=== PATIENT | male | born 1975 | race Caucasian/White ===

== ENCOUNTER 2022-04-29 02:18 | Inpatient (IN) | payer MEDICAID, SELFPAY ==
[2022-04-29 02:21] VITALS: BMI 21.5
[2022-04-29 02:25] VITALS: BP 148/105; PULSE 68; RESP 16; TEMP 37.1; O2SAT 99
--- NOTE | 2022-04-29 02:41 | ED.C_ITS ---
HPI - Psych General: Chief Complaint: Psychiatric Symptoms Stated Complaint: SI/HI Time Seen by Provider: 04/29/22 02:21 Source: patient and EMS Mode of arrival: EMS Limitations: no limitations History of Present Illness: 47-year-old male was found sleeping by a vending machine at a [employer] by police when they awoke he states he is suicidal he tells me that he has been increasingly depressed he is supposed be on meds he is no longer taking them he states he just no longer wants to live has no specific plan but states that he needs to get help or he is going to harm himself. Associated symptoms: Reports depression and suicidal ideation Review of Systems Const: Denies: fever(s), chills, body aches or change in appetite Eyes: Denies: blurry vision or eye discomfort ENMT: Denies: throat pain or dental pain Card: Denies: chest pain Resp: Denies: dyspnea GI: Denies: abdominal pain, nausea, vomiting or diarrhea : Denies: dysuria Musc: Denies: neck pain or back pain Skin/Breast: Denies: rash Neuro: Denies: headache(s) Psych: Reports: depression and suicidal ideation Misha/Lymph: Denies: easy bruising All/Imm: Denies: urticaria PFSH ED PFSH: Medical History (Updated 04/29/22 @ 03:18 by Tunde Becerra MD) Depression Social History (Updated 04/29/22 @ 02:42 by Tunde Becerra MD) Substance/Drug Use: current Physical Exam Const: COMMON NORMALS: no acute distress, patient oriented x3 and healthy appearing HENMT: COMMON NORMALS: normocephalic and atraumatic HEAD & SCALP: normocephalic and atraumatic Eye: COMMON NORMALS: Equal, round and reactive pupils present and EOMs intact bilaterally PUPIL: Yes Equal, round and reactive pupils present Neck/C-Spine: COMMON NORMALS: full ROM and supple Chest: COMMONS NORMALS: normal inspection of the chest and normal palpation of entire chest wall Resp: COMMON NORMALS: normal respiratory effort, No retractions, No use of accessory muscles and clear to auscultation bilaterally AUSCULTATION: clear to auscultation bilaterally Cardio: COMMON NORMALS: regular rate, regular rhythm and No murmurs present (Cardio) RATE: regular rate RHYTHM: regular rhythm GI: COMMON NORMALS: Normal to inspection, nondistended, normoactive bowel sounds present, Soft to palpation, non-tender and no masses PALPATION: Yes Soft to palpation Extremity: COMMON NORMALS: normal to inspection and full ROM Neuro: COMMON NORMALS: patient oriented x3, moves all extremities and no focal motor deficits Psych: COMMON NORMALS: mental status grossly normal, Normal thought process present and cooperative MOOD & AFFECT: Yes depressed mood THOUGHT PROCESS: Normal thought process present THOUGHT CONTENT: Yes Suicidality present Skin: COMMON NORMALS: no rashes or lesions noted and no wounds GENERAL SKIN EXAM: no rashes or lesions noted Course Vital Signs: Vital signs: Vital Signs Temperature 98.8 F 04/29/22 02:25 Pulse Rate 68 04/29/22 02:25 Respiratory Rate 16 04/29/22 02:25 Blood Pressure 148/105 04/29/22 02:25 Pulse Oximetry 99 04/29/22 02:25 Oxygen Delivery Me thod 04/29/22 02:25 MDM - Psych Medical Decision Making Patient presents here with suicidal ideation he was placed on a 96-hour hold spoke to psychiatrist Dr. De La Rosa and will admit at this time. Lab Data 04/29/22 03:02 04/29/22 03:02 Laboratory Results WBC 6.5 10^3/uL (4.0-10.0) 04/29/22 03:02 RBC 5.21 10^6/uL (4.1-5.3) 04/29/22 03:02 Hgb 15.2 g/dL (11.7-16.6) 04/29/22 03:02 Hct 44.7 % (42.0-52.0) 04/29/22 03:02 MCV 85.8 fl (80-94) 04/29/22 03:02 MCH 29.2 pg (28.0-34.0) 04/29/22 03:02 MCHC 34.0 g/dL (30.0-36.0) 04/29/22 03:02 RDW 12.9 % (12.1-15.1) 04/29/22 03:02 Plt Count 283 10^3/cmm (130-400) 04/29/22 03:02 MPV 8.5 fL (7.4-10.4) 04/29/22 03:02 Neut % (Auto) 51.1 % 04/29/22 03:02 Lymph % (Auto) 38.2 % 04/29/22 03:02 [place] % (Auto) 8.0 % 04/29/22 03:02 Eos % (Auto) 1.7 % 04/29/22 03:02 Baso % (Auto) 0.8 % 04/29/22 03:02 Neut # (Auto) 3.33 10^3/uL (1.8-7.7) 04/29/22 03:02 Lymph # (Auto) 2.5 10^3/uL (0.8-4.8) 04/29/22 03:02 [place] # (Auto) 0.5 10^3/uL (0.2-0.9) 04/29/22 03:02 Eos # (Auto) 0.1 10^3/uL (0.0-0.8) 04/29/22 03:02 Baso # (Auto) 0.1 10^3/uL (0.0-0.1) 04/29/22 03:02 Nucleated RBC % (auto) 0 % 04/29/22 03:02 Nucleated RBCs # 0.0 /100WBC 04/29/22 03:02 Discharge Plan Discharge Patient Disposition: Admitted As Inpatient Clinical Impression: Suicidal ideation Coding Level of Care Code ED [employer]
[2022-04-29 03:12] LABS: Basophils # 0.1 10^3/uL (0.0-0.1); Basophils % 0.8 %; Eosinophils # 0.1 10^3/uL (0.0-0.8); Eosinophils % 1.7 %; Hematocrit 44.7 % (42.0-52.0); Hemoglobin 15.2 g/dL (11.7-16.6); Lymphocytes # 2.5 10^3/uL (0.8-4.8); Lymphocytes % 38.2 %; Mean Corpuscular Hemoglobin 29.2 pg (28.0-34.0); Mean Corpuscular Volume 85.8 fl (80-94); Mean Platelet Volume 8.5 fL (7.4-10.4); Monocytes # 0.5 10^3/uL (0.2-0.9); Neutrophils # 3.33 10^3/uL (1.8-7.7); Neutrophils % 51.1 %; Nucleated Red Blood Cells % 0 %; Platelet Count 283 10^3/cmm (130-400); Red Blood Count 5.21 10^6/uL (4.1-5.3); Red Cell Distribution Width 12.9 % (12.1-15.1); White Blood Count 6.5 10^3/uL (4.0-10.0)
[2022-04-29] MEDS: LORazepam 2 mg Tablet PO (03:25)
--- NOTE | 2022-04-29 03:25 | PC.NURSE ---
Pt served with copy of 96 hour hold right @ 7527 by this nurse and security.
[2022-04-29 03:35] LABS: Alanine Aminotransferase 26 U/L (0-41); Albumin Level 4.7 g/dL (3.5-5.2); Alkaline Phosphatase 63 U/L (40-130); Anion Gap 13.5 (5-19); Aspartate Amino Transferase 22 U/L (0-40); Blood Urea Nitrogen 16 mg/dL (6-20); Calcium 9.6 mg/dL (8.5-10.5); Carbon Dioxide 27 mmol/L (22-29); Chloride 96 mmol/L (98-107); Creatinine Clr Calc Pharmacy 133.8588; Globulin 3.7 g/dL (1.3-4.6); Glucose 91 mg/dL (65-115); Osmolality Calculated 277 mOsm/kg (285-295); Potassium 3.5 mmol/L (3.5-5.1); Sodium 133 mmol/L (136-145); Total Bilirubin 0.9 mg/dL (0.15-1.2); Total Protein 8.4 g/dL (6.6-8.7)
[2022-04-29 03:46] LABS: Acetaminophen < 5.0 ug/mL (10-30); Alcohol Level < 10 mg/dL (0-10); Salicylate < 0.3 mg/dL (3-10)
[2022-04-29 04:53] VITALS: BP 158/76; PULSE 99; RESP 18; TEMP 36.6; O2SAT 100
[2022-04-29 04:54] VITALS: BP 139/90; PULSE 100; RESP 16; O2SAT 98
[2022-04-29 05:16] LABS: Amphetamines Screen Urine Positive (Negative); Barbiturates Screen Urine Negative (Negative); Benzodiazepines Screen Urine Positive (Negative); Cocaine Screen Urine Negative (Negative); Opiate Screen Urine Negative (Negative); PCP Screen Urine Negative (Negative); THC Screen Urine Positive (Negative)
--- NOTE | 2022-04-29 05:30 | PC.NURSE ---
0330- pt read rights and notified of his 96 hr hold by Trisha GUYhistoric sites supervisor, Bala guajardo
[2022-04-29] MEDS: OLANZapine 5 mg ODT PO ×3 (05:32→14:14)
[2022-04-29] MEDS: hyDROXYzine 25 mg Capsule 50 MG PO ×2 (05:32→14:14)
[2022-04-29] MEDS: trazodone 50 mg Tablet PO (05:33)
[2022-04-29 06:00] VITALS: BP 158/76; PULSE 99; RESP 18; TEMP 36.6; O2SAT 100
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
[2022-04-29] MEDS: famotidine 20 mg Tablet 40 MG PO ×2 (08:54→20:01)
[2022-04-29] MEDS: acetaminophen 325 mg Tablet 650 MG PO (09:47)
[2022-04-29] MEDS: sucralfate 1 gm Tablet PO ×2 (12:52→17:53)
[2022-04-29 14:00] VITALS: RESP 16
[2022-04-29] MEDS: ALPRAZolam 0.5 mg Tablet 1 MG PO (18:36)
[2022-04-29] MEDS: gabapentin 400 mg Capsule 800 MG PO (20:02)
[2022-04-29] MEDS: quetiapine 100 mg Tablet 200 MG PO (20:02)
[2022-04-29 22:00] VITALS: BP 117/70; PULSE 65; RESP 16; TEMP 36.8; O2SAT 95
[2022-04-30 06:00] VITALS: BP 115/76; PULSE 72; RESP 16; O2SAT 98
[2022-04-30] MEDS: sucralfate 1 gm Tablet PO ×4 (08:19→21:44)
[2022-04-30] MEDS: gabapentin 400 mg Capsule 800 MG PO ×3 (08:19→21:20)
[2022-04-30] MEDS: sertraline 50 mg Tablet PO (08:20)
[2022-04-30] MEDS: ALPRAZolam 0.5 mg Tablet 1 MG PO ×3 (08:20→21:21)
[2022-04-30] MEDS: famotidine 20 mg Tablet 40 MG PO ×2 (08:20→21:24)
[2022-04-30] MEDS: acetaminophen 325 mg Tablet 650 MG PO (10:54)
[2022-04-30 14:00] VITALS: BP 120/71; PULSE 70; RESP 18; TEMP 36.6; O2SAT 98
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
[2022-04-30] MEDS: ibuprofen 600 mg Tablet PO ×2 (17:27→21:40)
[2022-04-30] MEDS: quetiapine 100 mg Tablet 200 MG PO (21:19)
[2022-04-30] MEDS: trazodone 50 mg Tablet PO (21:20)
[2022-04-30 22:00] VITALS: BP 133/88; PULSE 80; RESP 16; TEMP 36.4; O2SAT 100
[2022-05-01 06:00] VITALS: BP 119/81; PULSE 84; RESP 16; TEMP 36.4; O2SAT 99
[2022-05-01] MEDS: sucralfate 1 gm Tablet PO ×4 (06:52→21:07)
[2022-05-01] MEDS: ibuprofen 600 mg Tablet PO (06:53)
[2022-05-01] MEDS: hyDROXYzine 25 mg Capsule 50 MG PO ×2 (06:53→15:38)
[2022-05-01] MEDS: famotidine 20 mg Tablet 40 MG PO ×2 (09:07→21:06)
[2022-05-01] MEDS: ALPRAZolam 0.5 mg Tablet 1 MG PO ×3 (09:08→20:56)
[2022-05-01] MEDS: sertraline 50 mg Tablet PO (09:08)
[2022-05-01] MEDS: gabapentin 400 mg Capsule 800 MG PO ×3 (09:08→20:56)
[2022-05-01] MEDS: OLANZapine 5 mg ODT PO ×2 (10:24→18:09)
[2022-05-01 14:00] VITALS: BP 135/74; PULSE 98; RESP 18; TEMP 36.9; O2SAT 97
--- NOTE | 2022-05-01 14:03 | W.PM.NPUPNS ---
Subjective NPU Subjective: Patient presented today reporting that things are going rough. We had a fairly contentious conversation about his medications. He was upset that his Xanax was not still being prescribed at 2 mg p.o. 3 times daily. We had a very lengthy discussion about why we would change that. He argued that it is working perfectly and I question that given that he is in the hospital. He reports a plan to return to the previous prescriber and go right back to that dose which we discussed was his prerogative. However we discussed the fact that pain medication prescription will have to take that into consideration. Additionally we discussed that long-term 6 mg of Xanax a day is not sustainable. We discussed his pain he reports and agreed we would initiate a hospitalist consult and await their recommendations from a standpoint of managing that aspect of his hospitalization. He continued to report stress related to inheriting a bunch of money often talking about values of things in possible millions and Gold bars and silver bars etc. Mental Status Exam MSE Comments: This is a slender white male in hospital scrubs with adequate grooming and limited eye contact. No abnormal movements except for mild psychomotor agitation. Mostly cooperative with exam and mild distress. Speech was slightly increased rate and normal volume. Mood described as okay but in pain, affect hypomanic. Thought process disorganized at times. Thought content: Patient denied suicidal or homicidal ideation, there were no delusions reported but some possible odd, paranoid, persecutory delusions noted, he denied any auditory or visual hallucinations. Attention and concentration were limited and memory appeared unreliable but none were formally tested. He is alert and oriented x3. Insight and judgment appear limited impulse control is impaired. Vitals/I&O/Wt Last Vital Signs Temp 97.5 F L 05/01/22 06:00 Pulse 84 05/01/22 06:00 Resp 16 05/01/22 06:00 BP 119/81 05/01/22 06:00 Pulse Ox 99 05/01/22 06:00 O2 Del Method 05/01/22 06:00 Data NPU 04/29/22 03:02 04/29/22 03:02 A&P Assessment and plan (1) Suicidal ideation: (2) Major depressive disorder, recurrent severe without psychotic features: (3) PTSD (post-traumatic stress disorder): (4) ADHD: Plan The patient is a 47 year old white male with PTSD, MDD, panic attacks admitted with worsening depression and suicidal ideation. He will require continued inpatient hospitalization. #1. We will attempt to gather collateral information including medications. #2. Engage patient in individual milieu and group therapy. #3. Continue 15-minute checks for safety on the unit. #4. We will restart Xanax, Zoloft, gabapentin, and Seroquel as prescribed. #5. Obtain hospitalist consult to evaluate pain and possible need for pain medication in the context of reports of multiple hernias. Involuntary Hold Information 96 Hour Hold: 96 Hour Involuntary Admission: Yes 96 Hour Hold Ending Date: 05/05/22 96 Hour Hold Ending Time: 02:18 Attestations NPU Medical Necessity Statement*: Inpatient hospitalization is medically necessary and the clinically appropriate intervention at this time. We will continue/initiate medications and make changes as indicated. Likely length of stay of 3-6 days. Coding Level of Care Code Acute Code for [facility] Fwd Diagnoses Suicidal ideation R45.851 Major depressive disorder, recurrent severe without psychotic features F33.2 PTSD (post-traumatic stress disorder) F43.10 ADHD F90.9
--- NOTE | 2022-05-01 15:55 | PM.CONSULT ---
Providers/Reason For Consult Consulting Physician/Specialty*: Family Medicine. Reason for Consult*: Abdominal hernia x 3. Attending Physician: Srinivasa De La Rosa MD History of Present Illness History of Present Illness Abisai Humphrey is a 47 year old male currently admitted to [facility] for Depression with SI, PTSD. Dr. De La Rosa requested consult for evaluation of abdominal hernias. Patient had been reporting pain when he gets up and moves around. He was previously evaluated it [facility] and it was recommended that he establish with a PCP and set up with surgery to have these repaired. He voices to me today that due to several life circumstances, he was unable to make this happen. He denies any pain at rest. Has had normal bowel movements and passes flatus regularly without difficulty. Denies blood in his stool. He does endorse a current history of Hepatitis C. Review of Systems General: Reports: 10 or more systems reviewed and unremarkable except in HPI and below Medications/Allergies Home Medications Medication Instructions Recorded Confirmed Last Taken Type albuterol sulfate 90 mcg/actuation 2 inh inhalation BID PRN Shortness 04/29/22 04/29/22 Unknown History aerosol inhaler (ProAir HFA) Of Breath Or Wheezing famotidine 40 mg tablet (Pepcid) 40 mg PO 1XD 04/29/22 04/29/22 Unknown History naloxone 4 mg/actuation nasal 4 mg intranasal DIRECTED PRN 04/29/22 04/29/22 Unknown History spray (Narcan) (Drug) Ingestion sucralfate 1 gram tablet (Carafate) 1 g PO DIRECTED 04/30/22 04/30/22 Unknown History Allergies Allergy/AdvReac Type Severity Reaction Status Date / Time haloperidol [From Haldol] Allergy ADR-Cramping Verified 04/29/22 03:31 of the Muscles Current Medications Generic Name Dose Route Start Last Admin Trade Name Freq PRN Reason Stop Dose Admin Acetaminophen 650 mg 04/29/22 04:53 04/30/22 10:54 Acetaminophen 325 Mg Tablet PO 650 mg Q4H PRN Administration MILD PAIN Alprazolam 1 mg 04/30/22 09:00 05/01/22 15:44 Alprazolam 0.5 Mg Tablet PO 1 mg TID ERVIN Administration Famotidine 40 mg 04/29/22 09:00 05/01/22 09:07 Famotidine 20 Mg Tablet PO 40 mg BID@0900,2100 ERVIN Administration Gabapentin 800 mg 04/29/22 21:00 05/01/22 15:44 Gabapentin 400 Mg Capsule PO 800 mg TID ERVIN Administration Hydroxyzine Pamoate 50 mg 04/29/22 04:53 05/01/22 15:38 Hydroxyzine 25 Mg Capsule PO 50 mg Q6H PRN Administration ANXIETY Ibuprofen 600 mg 04/30/22 15:53 05/01/22 06:53 Ibuprofen 600 Mg Tablet PO 600 mg Q6H PRN Administration MODERATE PAIN Olanzapine 5 mg 04/29/22 04:53 05/01/22 10:24 Olanzapine 5 Mg Odt PO 5 mg Q4H PRN Administration Agitation/Psychosis Quetiapine Fumarate 200 mg 04/29/22 21:00 04/30/22 21:19 Quetiapine 100 Mg Tablet PO 200 mg BEDTIME ERVIN Administration Sertraline HCl 50 mg 04/30/22 09:00 05/01/22 09:08 Sertraline 50 Mg Tablet PO 50 mg DAILY ERVIN Administration Sucralfate 1 gm 04/30/22 07:30 05/01/22 12:41 Sucralfate 1 Gm Tablet PO 1 gm AC&BEDTIME ERVIN Administration PFSH Acute PFSH: Medical History (Updated 05/01/22 @ 16:00 by Andrew Berumen DO) Depression Social History (Updated 04/29/22 @ 02:42 by Tunde Becerra MD) Substance/Drug Use: current Vitals/I&O/Wt Last Vital Signs Temp 98.5 F 05/01/22 14:00 Pulse 98 05/01/22 14:00 Resp 18 05/01/22 14:00 BP 135/74 05/01/22 14:00 Pulse Ox 97 05/01/22 14:00 O2 Del Method 05/01/22 14:00 Physical Exam Narrative: General: Cooperative patient in no apparent distress. Well developed. HEENT: Normocephalic, Atraumatic. External ears normal. Nasal passages patent without drainage. MMM. Heart: RRR. Resp: LCTA. No respiratory distress, no use of accessory muscles. Abd: Soft, non-tender. Non-distended. Reducible abdominal hernia upper abdomen, bilateral inguinal hernias, R>L side. No signs or concerns of incarceration or strangulation. Bowel sounds normal. Extremities: No edema. Skin: No rash or lesions on exposed areas. Data 04/29/22 03:02 04/29/22 03:02 A&P Assessment and plan (1) Abdominal hernia: (2) Bilateral inguinal hernia: Plan Abisai Humphrey is a 47 year old male seen today for evaluation of his Abdominal hernias. They appear stable and easily reducible at this time. He says that he did have them evaluated at other facilities previously and was encouraged to establish with a general surgeon to have these repaired. He regards pain as his biggest problem at this time. He does have a questionable history of substance abuse, and recent UDS was positive for THC, Amphetamines, Benzos. Will hold on opiate medications at this time given this and the potential for slowing colonic transit/constipation which could worsen his hernias. Can try Diclofenac to see if this will help with is pain. I recomended that he alternate Tylenol and NSAIDs in attempt to keep his pain better controlled. No indication for imaging at this time. May be handled on outpatient basis, but would recommend that he have this done relatively quickly as to avoid progression or worsening. Will follow with patient as needed. Consult Attestations Medical Necessity Statement: Consult completed for evaluation of abdominal hernia and pain control. Coding Level of Care Code Acute Code for Chg Fwd Straight Forward MDM includes number and complexity of problems actively addressed during encounter, amount and/or complexity of data reviewed/ordered and described risk of complication, morbidity or mortality of management as documented Diagnoses Abdominal hernia K46.9 Bilateral inguinal hernia K40.20
--- NOTE | 2022-05-01 18:10 | PC.NURSE ---
PRN [facility] Nurse Supervisor Patient states he is feeling overwhelmed by trying to think of what he is going to do when he leaves here. This RN assured him our interdisciplinary team would help him decide where to go and what to do. This RN also suggested he make a list of ideas of things he might want to do before he leaves here and what he is going to do after. Patient stated he didn't want to try the coping mechanism right now. Zyprexa 10mg odt administered.
[2022-05-01 20:07] VITALS: BP 145/84; PULSE 97; RESP 21; TEMP 36.7; O2SAT 98
[2022-05-01] MEDS: quetiapine 100 mg Tablet 200 MG PO (20:57)
[2022-05-01] MEDS: acetaminophen 325 mg Tablet 650 MG PO (20:57)
[2022-05-02 06:00] VITALS: RESP 17
[2022-05-02] MEDS: sucralfate 1 gm Tablet PO ×4 (07:08→22:26)
[2022-05-02] MEDS: gabapentin 400 mg Capsule 800 MG PO ×3 (08:06→21:12)
[2022-05-02] MEDS: sertraline 50 mg Tablet PO (08:06)
[2022-05-02] MEDS: ALPRAZolam 0.5 mg Tablet 1 MG PO ×3 (08:06→21:11)
[2022-05-02] MEDS: famotidine 20 mg Tablet 40 MG PO ×2 (08:07→22:26)
[2022-05-02] MEDS: hyDROXYzine 25 mg Capsule 50 MG PO (11:12)
[2022-05-02] MEDS: OLANZapine 5 mg ODT PO ×3 (11:39→18:21)
[2022-05-02] MEDS: benzocaine 20% 7 gm 1 APPLIC MUCOUS MEM (11:40)
[2022-05-02] MEDS: acetaminophen 325 mg Tablet 650 MG PO ×2 (11:56→15:22)
--- NOTE | 2022-05-02 13:29 | W.PM.NPUPNS ---
Subjective NPU Subjective: Patient presented today reporting that he now has [id number] to pain and need medication for that. It is notable that his vvi-[id number] pain from his hernia is which led to him having exaggerated gait is no longer notable. He had very angry about lack of willingness to have sympathy and give him pain medications every 6 hours. The increase in his ibuprofen was not acceptable approach as far he was concerned. He started focusing on his hold is over and making threats about acting out to get an injection. Mental Status Exam MSE Comments: This is a slender white male in hospital scrubs with adequate grooming and limited eye contact. No abnormal movements except for mild psychomotor agitation. Mostly uncooperative with exam and mild to moderate distress. Speech was slightly increased rate and normal volume. Mood described as upset/angry and in pain, affect hypomanic. Thought process more organized. Thought content: Patient denied suicidal or homicidal ideation, there were no delusions reported but some possible odd, paranoid, persecutory delusions noted, he denied any auditory or visual hallucinations. Attention and concentration were limited and memory appeared unreliable but none were formally tested. He is alert and oriented x3. Insight and judgment appear limited impulse control is impaired. Vitals/I&O/Wt Last Vital Signs Temp 98.0 F 05/01/22 20:07 Pulse 97 05/01/22 20:07 Resp 17 05/02/22 06:00 BP 145/84 05/01/22 20:07 Pulse Ox 98 05/01/22 20:07 O2 Del Method 05/01/22 20:07 Data NPU 04/29/22 03:02 04/29/22 03:02 A&P Assessment and plan (1) Abdominal hernia: (2) Bilateral inguinal hernia: (3) Suicidal ideation: (4) Major depressive disorder, recurrent severe without psychotic features: (5) PTSD (post-traumatic stress disorder): (6) ADHD: Plan The patient is a 47 year old white male with PTSD, MDD, panic attacks admitted with worsening depression and suicidal ideation. He will require continued inpatient hospitalization. #1. We will attempt to gather collateral information including medications. #2. Engage patient in individual milieu and group therapy. #3. Continue 15-minute checks for safety on the unit. #4. We will restart Xanax, Zoloft, gabapentin, and Seroquel as prescribed. #5. Obtain hospitalist consult to evaluate pain and possible need for pain medication in the context of reports of multiple hernias. Involuntary Hold Information 96 Hour Hold: 96 Hour Involuntary Admission: Yes 96 Hour Hold Ending Date: 05/05/22 96 Hour Hold Ending Time: 02:18 Attestations NPU Medical Necessity Statement*: Inpatient hospitalization is medically necessary and the clinically appropriate intervention at this time. We will continue/initiate medications and make changes as indicated. Likely length of stay of 2-5 days. Coding Level of Care Code Acute Code for Chg Fwd Diagnoses Abdominal hernia K46.9 Bilateral inguinal hernia K40.20 Suicidal ideation R45.851 Major depressive disorder, recurrent severe without psychotic features F33.2 PTSD (post-traumatic stress disorder) F43.10 ADHD F90.9
[2022-05-02 14:00] VITALS: BP 148/109; PULSE 118; RESP 18; TEMP 37; O2SAT 97
[2022-05-02] MEDS: diclofenac 75 mg DR Tablet PO (17:11)
[2022-05-02] MEDS: loperamide 2 mg Capsule PO (18:18)
[2022-05-02] MEDS: ondansetron 4 MG Tablet PO (18:18)
[2022-05-02] MEDS: ibuprofen 800 mg tablet PO (19:17)
--- NOTE | 2022-05-02 19:20 | PC.NURSE ---
Pt stated that he feels the [facility] is ignorant and unsympathetic to him.
[2022-05-02 20:04] VITALS: BP 162/91; PULSE 102; RESP 18; TEMP 37.3; O2SAT 100
[2022-05-02] MEDS: quetiapine 100 mg Tablet 200 MG PO (21:11)
[2022-05-03] MEDS: hyDROXYzine 25 mg Capsule 50 MG PO (03:29)
[2022-05-03] MEDS: ibuprofen 800 mg tablet PO ×3 (03:29→22:53)
[2022-05-03 06:00] VITALS: BP 134/75; PULSE 92; RESP 18; O2SAT 98
[2022-05-03] MEDS: acetaminophen 325 mg Tablet 650 MG PO (08:40)
[2022-05-03] MEDS: ALPRAZolam 0.5 mg Tablet 1 MG PO ×3 (08:40→21:11)
[2022-05-03] MEDS: gabapentin 400 mg Capsule 800 MG PO ×3 (08:40→19:55)
[2022-05-03] MEDS: sucralfate 1 gm Tablet PO ×4 (08:41→19:55)
[2022-05-03] MEDS: sertraline 50 mg Tablet PO (08:41)
[2022-05-03] MEDS: famotidine 20 mg Tablet 40 MG PO ×2 (08:41→19:56)
--- NOTE | 2022-05-03 12:18 | W.PM.NPUPNS ---
Subjective NPU Subjective: Patient presented today reporting that he is still having some pain in his tooth. We discussed the possibility of antibiotic but it is unclear whether there is an infection though he does report feeling swelling in his face is not excessively so. We discussed his holding up soon and the possibility of discharge tomorrow. He lobbied for his Xanax to be increased. He also lobbied for pain medication. We discussed a plan to call his outpatient provider to discuss the plan for Xanax moving forward for discharge dosage. He reported worries about his inheritance being stolen from him and also discussed a $1.5 million settlement with 1 entity and $2.5 million settlement and works regarding some other entity. Mental Status Exam MSE Comments: This is a slender white male in hospital scrubs with adequate grooming and limited eye contact. No abnormal movements except for mild psychomotor agitation. More cooperative with exam and mild distress. Speech was slightly increased rate and normal volume. Mood described as more calm but still in pain, affect congruent. Thought process more organized. Thought content: Patient denied suicidal or homicidal ideation, there were no delusions reported but some possible odd, paranoid, persecutory delusions noted, he denied any auditory or visual hallucinations. Attention and concentration were limited and memory appeared unreliable but none were formally tested. He is alert and oriented x3. Insight and judgment appear limited impulse control is impaired. Vitals/I&O/Wt Last Vital Signs Temp 99.1 F 05/02/22 20:04 Pulse 92 05/03/22 06:00 Resp 18 05/03/22 06:00 BP 134/75 05/03/22 06:00 Pulse Ox 98 05/03/22 06:00 O2 Del Method 05/01/22 20:07 Weight last 48 hrs Weight 69.037 kg Data NPU 04/29/22 03:02 04/29/22 03:02 A&P Assessment and plan (1) Abdominal hernia: (2) Bilateral inguinal hernia: (3) Suicidal ideation: (4) Major depressive disorder, recurrent severe without psychotic features: (5) PTSD (post-traumatic stress disorder): (6) ADHD: Plan The patient is a 47 year old white male with PTSD, MDD, panic attacks admitted with worsening depression and suicidal ideation. He will require continued inpatient hospitalization. #1. We will attempt to gather collateral information including medications. #2. Engage patient in individual milieu and group therapy. #3. Continue 15-minute checks for safety on the unit. #4. We will restart Xanax, Zoloft, gabapentin, and Seroquel as prescribed. #5. Obtain hospitalist consult to evaluate pain and possible need for pain medication in the context of reports of multiple hernias. Involuntary Hold Information 96 Hour Hold: 96 Hour Involuntary Admission: Yes 96 Hour Hold Ending Date: 05/05/22 96 Hour Hold Ending Time: 02:18 Attestations NPU Medical Necessity Statement*: Inpatient hospitalization is medically necessary and the clinically appropriate intervention at this time. We will continue/initiate medications and make changes as indicated. Likely length of stay of 1-4 days. Coding Level of Care Code Acute Code for g Fwd Diagnoses Abdominal hernia K46.9 Bilateral inguinal hernia K40.20 Suicidal ideation R45.851 Major depressive disorder, recurrent severe without psychotic features F33.2 PTSD (post-traumatic stress disorder) F43.10 ADHD F90.9
[2022-05-03 14:00] VITALS: BP 134/85; PULSE 98; RESP 18; TEMP 36.4; O2SAT 97
[2022-05-03] MEDS: nicotine 21 mg Patch 1 PATCH TRANSDERMA (14:32)
[2022-05-03] MEDS: OLANZapine 5 mg ODT PO ×2 (16:29→19:56)
[2022-05-03] MEDS: blistex lip oint 7 gm Tube 1 APPLIC TOPICAL (16:29)
--- NOTE | 2022-05-03 16:35 | PC.NURSE ---
PT REQUESTING SOME MEDS FOR THE VOICES PT IS ALLERGIC TO HALDOL SO THIS NURSE ADMIN ZBARONIS AND PT SAID THAT MED DOES HELP, PT REPORTS VOICES ARE TELLING HIM WE ARE TRYING TO TAKE OVER HIS MIND AND CRUDE THINGS ABOUT THIS NURSE. PT HAS NO S/S OF RESPONDING TO INTERNAL STIMULI
[2022-05-03] MEDS: loperamide 2 mg Capsule PO (18:04)
[2022-05-03] MEDS: quetiapine 100 mg Tablet 200 MG PO (19:54)
[2022-05-03 20:07] VITALS: BP 150/82; PULSE 120; RESP 22; TEMP 36.8; O2SAT 95
[2022-05-04] MEDS: acetaminophen 325 mg Tablet 650 MG PO (04:16)
[2022-05-04] MEDS: hyDROXYzine 25 mg Capsule 50 MG PO ×3 (04:16→20:10)
--- NOTE | 2022-05-04 05:39 | PC.NURSE ---
Patient has been med seeking this shift. At beginning of shift patient came to window and stated he needed a shot for his agitation and AH. Stated the voices were loud and he wanted an Ativan shot. Explained to patient that an IM was a last resort medication and offered patient po zyprexa. Patient stated it would not work. Reinforced how and when medication is administered. Spoke with patient in great length and told him he would not be getting an IM at this time and offered po zyprexa. Patient started rubbing his face and head and stated I see other people getting shots, why can't I? Explained again the procedure on administration of medications for anxiety, psychosis and agitation. Patient then agreed to take zyprexa po and Ibuprofen for a toothache at 1957. Patient returned to room and slept til 0415. Patient came to window and asked for something for his nerves. Patient requested IM ativan again. Reviewed what we had talked about earlier in shift. Told patient I could offer him vistaril for his anxiety. Patient stated That doesn't work for me. Patient then complained of a toothache and tylenol was offered at that time. Patient agreed to take vistaril and tylenol at that time. Given as ordered. Patient then asked for snacks which included ice-cream. Suggested different snack than ice-cream due to his c/o toothache. Patient stated he wanted the ice-cream and would be fine. Patient has been asleep with no further signs of pain or anxiety noted at this time.
[2022-05-04 06:00] VITALS: BP 128/83; PULSE 103; RESP 18; O2SAT 98
[2022-05-04] MEDS: sucralfate 1 gm Tablet PO ×4 (06:25→20:10)
[2022-05-04] MEDS: ibuprofen 800 mg tablet PO ×2 (08:01→21:43)
[2022-05-04] MEDS: sertraline 50 mg Tablet PO (08:02)
[2022-05-04] MEDS: gabapentin 400 mg Capsule 800 MG PO ×3 (08:02→20:10)
[2022-05-04] MEDS: ALPRAZolam 0.5 mg Tablet 1 MG PO ×3 (08:02→20:10)
[2022-05-04] MEDS: famotidine 20 mg Tablet 40 MG PO ×2 (08:02→20:10)
[2022-05-04] MEDS: nicotine 21 mg Patch 1 PATCH TRANSDERMA (08:46)
[2022-05-04] MEDS: OLANZapine 5 mg ODT PO ×2 (10:09→21:43)
[2022-05-04 14:00] VITALS: BP 153/95; PULSE 102; RESP 18; TEMP 36.8; O2SAT 98
[2022-05-04] MEDS: ondansetron 4 MG Tablet PO (14:11)
--- NOTE | 2022-05-04 14:12 | PC.NURSE ---
PT CAME TO NURSES STATION COMPLAINING OF ANXIETY AND FEELING NAUSEATED. PT WAS GIVEN SCHEDULED XANAX AND ZOFRAN.
[2022-05-04] MEDS: calcium carbonate 500 mg Chew Tablet PO (15:02)
[2022-05-04] MEDS: benzocaine 20% 7 gm 1 APPLIC MUCOUS MEM ×2 (15:10→21:43)
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
[2022-05-04] MEDS: quetiapine 100 mg Tablet 200 MG PO (20:10)
[2022-05-04 20:15] VITALS: BP 163/97; PULSE 101; RESP 18; TEMP 36.7; O2SAT 96
[2022-05-05 04:54] VITALS: BP 137/95; PULSE 104; RESP 18; TEMP 36.4; O2SAT 97
--- NOTE | 2022-05-05 06:32 | PC.NURSE ---
Patient came to nurse's station and stated he needed something for my nerves to calm me down. Patient stated he felt like he was going to lose his temper. PRN ativan po given. This content writer walked patient to room. Patient stated while talking with this content writer that he felt like he was going to go off today. When asked why he felt this way he responded Im just angry. Talked with patient for several minutes in an attempt to calm him down. Suggested patient lay down and try to relax so the medicine could work. Patient agreed and asked for an extra blanket. Patient currently in bed.
[2022-05-05] MEDS: sucralfate 1 gm Tablet PO ×3 (06:42→16:56)
[2022-05-05] MEDS: hyDROXYzine 25 mg Capsule 50 MG PO ×2 (07:35→12:10)
[2022-05-05] MEDS: ibuprofen 800 mg tablet PO (07:47)
[2022-05-05] MEDS: ALPRAZolam 0.5 mg Tablet 1 MG PO (08:52)
[2022-05-05] MEDS: sertraline 50 mg Tablet PO (08:53)
[2022-05-05] MEDS: famotidine 20 mg Tablet 40 MG PO (08:53)
[2022-05-05] MEDS: gabapentin 400 mg Capsule 800 MG PO ×2 (08:53→14:52)
[2022-05-05] MEDS: nicotine 21 mg Patch 1 PATCH TRANSDERMA (09:23)
[2022-05-05] MEDS: OLANZapine 5 mg ODT PO (10:19)
[2022-05-05 10:22] VITALS: BP 138/94; PULSE 108
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
[2022-05-05 14:31] VITALS: BP 138/94; PULSE 108; RESP 16; O2SAT 97
[2022-05-05] MEDS: ALPRAZolam 0.5 mg Tablet 2 MG PO (14:51)
== END 2022-05-05 18:24 | disposition home or self-care (01) | DRG 885 ==
LOC: ER 03:18 → NP 03:31
PROVIDERS: Admitting Provider Psychiatry & Neurology Psychiatry; Emergency Provider Emergency Medicine; Visit Provider Psychiatry & Neurology Psychiatry
DX: F33.2 Major depressive disorder, recurrent severe without psychotic features (principal); R45.851 Suicidal ideations; F41.9 Anxiety disorder, unspecified; F15.90 Other stimulant use, unspecified, uncomplicated; F12.90 Cannabis use, unspecified, uncomplicated; F41.0 Panic disorder [episodic paroxysmal anxiety]; F90.9 Attention-deficit hyperactivity disorder, unspecified type; F43.10 Post-traumatic stress disorder, unspecified; B19.20 Unspecified viral hepatitis C without hepatic coma; K40.20 Bilateral inguinal hernia, without obstruction or gangrene, not specified as recurrent
CPT/HCPCS: 80053; 80306; 80307; 85025; 97150; 97165; 99238; 99285; Q0162